=== PATIENT | female | born 1955 | race Caucasian/White ===

== ENCOUNTER 2019-02-19 15:14 | Emergency (ER) | payer BC, MEDICARE ==
[2019-02-19 15:59] VITALS: BP 136/87
--- NOTE | 2019-02-19 16:19 | UC ---
Abdominal Pain Female HPI - HPI Summary HPI Summary: C/O diarrhea since yesterday. Some nausea but no vomiting. No blood or mucus in the diarrhea. C/O ear fullness. 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 Negative: Diaphoresis, Fever, Cough, Dizzy, Constipation, Blood in Stool Allergies/Adverse Reactions: Allergies Allergy/AdvReac Type Severity Reaction Status Date / Time lansoprazole Allergy Hives Verified 02/19/19 16:00 PMH/Surg Hx/FS Hx/Imm Hx Endocrine History: Hypothyroidism GI/ History: Gastroesophageal Reflux - Surgical History Surgical History: Yes Surgery Procedure, Year, and Place: d&c. T&A. partial thyroidectomy. tubal ligation. meniscus repair. right knee replacement 07/2018 - Family History Known Family History: Positive: Cardiac Disease, Hypertension - Social History Occupation: Retired Lives: With Family Alcohol Use: Occasionally Alcohol Amount: 1-2 Substance Use Type: None Smoking Status (MU): Never Smoked Tobacco Review of Systems All Other Systems Reviewed And Are Negative: Yes Constitutional: Positive: Fatigue Gastrointestinal: Positive: Diarrhea, Nausea Physical Exam Triage Information Reviewed: Yes Appearance: No Pain Distress, Ill-Appearing - mild, Obese Vital Signs: Initial Vital Signs Temp 99.2 F 02/19/19 15:55 Pulse 70 02/19/19 15:55 Resp 16 02/19/19 15:55 BP 136/87 02/19/19 15:55 Pulse Ox 97 02/19/19 15:55 Vital Signs Reviewed: Yes Eyes: Positive: Conjunctiva Clear ENT: Positive: Pharynx normal, Nasal congestion, TMs normal Neck exam: Normal Respiratory Exam: Normal Cardiovascular Exam: Normal Abdomen Description: Positive: Nontender, No Organomegaly Bowel Sounds: Positive: Hyperactive Musculoskeletal Exam: Normal Neurological Exam: Normal Psychological Exam: Normal Skin Exam: Normal Abd Pain Female Course/Dx - Differential Dx/Diagnosis Differential Diagnosis: Constipation, Gall Bladder Disease, Pancreatitis, Peptic Ulcer Disease Provider Diagnosis: Viral gastroenteritis, Allergic rhinitis Discharge ED - Sign-Out/Discharge Documenting (check all that apply): Patient Departure All imaging exams completed and their final reports reviewed: No Studies - Discharge Plan Condition: Stable Disposition: HOME Prescriptions: Ondansetron ODT TAB* [Zofran 4 MG Odt TAB*] 4 mg PO Q6H PRN #14 tab.odt PRN Reason: Nausea/Vomiting Patient Education Materials: Gastroenteritis (ED) Referrals: Salazar Enamorado NP [Primary Care Provider] - Additional Instructions: NASAL SPRAYS AND DROPS: Afrin in the PUMP/ MIST bottle (Get generic 12 hours nasal decongestant spray). Tilt your head down and look at the floor while doing the spray, "nose to toes". Decongestant nasal sprays and drops often give dramatic relief from congestion. They are often recommended for patients with sinus infection to assist with sinus drainage. Persons with high blood pressure should consult the doctor before using these nasal sprays. Afrin and Jose-Synephrine are common qdsv-nmi-byifbpx preparations. They should not be used for more than five days, as "rebound" congestion can occur - - the congestion flares as the drug wears off. A way of dealing with this rebound congestion problem is to medicate only one nostril each time, allowing the other nostril to recover from the medicine' s effects. When you no longer need the drug during the day, spray only one nostril each night. This helps you sleep well without severe rebound congestion. Call the doctor if you develop severe headache, palpitations, or chest pain. Use the afrin before using the flonase. You may want to use it before flying to help being able to "pop" your ears. - Billing Disposition and Condition Condition: STABLE Disposition: Home
== END 2019-02-19 16:43 | disposition home or self-care (01) ==
LOC: UCCORT 15:14
DX: A08.4 Viral intestinal infection, unspecified (principal); J30.9 Allergic rhinitis, unspecified; R53.83 Other fatigue; Z88.8 Allergy status to other drugs, medicaments and biological substances
CPT/HCPCS: 99212; G0463

== ENCOUNTER 2019-07-27 16:34 | Emergency (ER) | payer MEDICARE ==
--- OUTSIDE RECORDS SUMMARY | 2019-07-27 16:47 | XMS REPORT | Continuity of Care Document ---
:1955 External Reference #:[id number] Author Name Salazar Enamorado NP (transmitted by agent of provider Selena Pascual) Address [address], [place] [address] Care Team Providers Name Role Phone Mita Lopez MD - Internal Care Team Information Blending Line Attendant [phone] Medicine Problems Active Problems Provider Date Hypothyroidism Salazar Enamorado NP Onset: 04/08/2018 Essential hypertension Salazar Enamorado NP Onset: 04/08/2018 Hyperlipidemia Salazar Enamorado NP Onset: 04/08/2018 Social History Type Date Description Comments Sex Unknown Tobacco Use Start: Unknown End: Former Cigarette Smoker 1978 Unknown Smoking Status Reviewed: 07/14/19 Former Cigarette Smoker 1978 ETOH Use Currently consumes 1-3 glasses of wine alcohol daily Tobacco Use Start: Unknown End: Patient is a former 1-1 1/2ppd from Unknown smoker 16-26 Recreational Drug Use Denies Drug Use Exercise Type/Frequency Exercises rarely Allergies, Adverse Reactions, Alerts Description No Known Drug Allergies Medications Active Medications SIG Qnty Indications Ordering Date Provider Irbesartan 1 by mouth 90tabs Salazar Enamorado NP 06/24/2019 300mg Tablets every day Gabapentin take 1-3 60caps G47.00 Salazar Enamorado NP 06/07/2019 100mg Capsules capsules by mouth at night Lotrimin AF For Her use as directed 24gm B35.4 Sailaja Byers, 10/28/2018 1% Cream to groin SENIOR CASE MANAGER-Cde Dilt-XR take 1 capsule 90caps I10 Vilma Taylor, 06/20/2018 180mg Caps ER 24HR by mouth every MD day Omeprazole take 1 capsule 90caps Salazar Enamorado NP 05/04/[address] by mouth every day Labetalol HCL take 1 tablet 180tabs Salazar Enamorado NP 04/08/2018 200mg Tablets by mouth twice a day Citalopram Hydrobromide take 1 tablet 90tabs Salazar Enamorado NP 04/08/2018 20mg by mouth every Tablets day Pravastatin Sodium take 1 tablet 90tabs Salazar Enamorado NP 04/08/2018 80mg Tablets by mouth every day Hydrochlorothiazide take 1 tablet 90tabs Salazar Enamorado NP 04/08/2018 25mg Tablets by mouth every day Levothyroxine Sodium take 1 tablet 90tabs E03.9 Vilma Davilaaz, 04/08/2018 50mcg by mouth every MD Tablets day Multi Adult Gummies 2 by mouth Unknown Chewtabs every day Fluticasone Propionate 2 sprays each Unknown 50mcg/Act nostril qd. Suspension Immunizations CPT Code Status Date Vaccine Lot # [id number] Given 12/17/2018 Influenza Virus Vaccine, Quadrivalent, Split, Preservative Free Vital Signs Date Vital Result Comment 07/14/2019 1:12pm Height 66 inches 5'6" Weight 224.12 lb Heart Rate 71 /min BP Systolic 154 mmHg BP Diastolic 91 mmHg BP Systolic Sitting 147 mmHg BP Diastolic Sitting 89 mmHg BP Systolic Recheck 146 mmHg BP Diastolic Recheck 88 mmHg Body Temperature 97.6 F O2 % BldC Oximetry 97 % BMI (Body Mass Index) 36.2 kg/m2 06/07/2019 10:35am Height 66 inches 5'6" Weight 218.12 lb Heart Rate 66 /min BP Systolic 114 mmHg BP Diastolic 79 mmHg Body Temperature 97.2 F O2 % BldC Oximetry 98 % BMI (Body Mass Index) 35.2 kg/m2 Results Test Acquired Date Facility Test Result H/L Range Note CBC Auto 07/14/2019 [facility] White Blood 5.8 10^3/uL Normal 3.5-10.[address] [place] [address] [phone] Red Blood Count 4.10 10^6/uL Normal 3.70-4.87 Hemoglobin 13.1 g/dL Normal 12.0-16.0 Hematocrit 39 % Normal 35-47 Mean Corpuscular Volume 94 fL Normal 80-97 Mean Corpuscular Hemoglobin 32 pg High 27-31 Mean Corpuscular HGB Conc 34 g/dL Normal 31-36 Red Cell Distribution Width 14 % Normal 10-15 Platelet Count 192 10^3/uL Normal 150-450 Mean Platelet Volume 8.9 fL Normal 7.4-10.4 Abs Neutrophils 4.0 10^3/uL Normal 1.5-7.7 Abs Lymphocytes 1.2 10^3/uL Normal 1.0-4.8 Abs Monocytes 0.4 10^3/uL Normal 0-0.8 Abs Eosinophils 0.1 10^3/uL Normal 0-0.6 Abs Basophils 0.0 10^3/uL Normal 0-0.2 Abs Nucleated RBC 0.0 10^3/uL Granulocyte % 69.8 % Lymphocyte % 20.4 % Monocyte % 7.6 % Eosinophil % 1.7 % Basophil % 0.5 % Nucleated Red Blood Cells % 0.0 Basic Metabolic 07/14/2019 [facility] Sodium 140 mmol/L Normal 135-[address] [place] [address] [phone] Potassium 3.9 mmol/L Normal 3.5-5.0 Chloride 104 mmol/L Normal 101-111 Co2 Carbon Dioxide 28 mmol/L Normal 22-32 Anion Gap 8 mmol/L Normal 2-11 Glucose 98 mg/dL Normal 70-100 Blood Urea Nitrogen 13 mg/dL Normal 6-24 Creatinine 0.68 mg/dL Normal 0.51-0.95 BUN/Creatinine Ratio 19.1 Normal 8-20 Calcium 9.1 mg/dL Normal 8.6-10.3 Egfr Non- 86.8 >60 Egfr 105.1 >60 1 Order 07/14/2019 [facility] In-House EKG <pending> Surgical 06/14/2019 [facility] Surgical SEE RESULT BELOW 2 , [address] [place] [address] [phone] PDFReport SEE IMAGE Laboratory test 06/14/2019 [facility] Clotest SEE RESULT 4 , [address] [place] [address] [phone] Lipid Profile 06/07/2019 [facility] Triglycerides 183 mg/dL 6 (Trig/Chol/HDL) [address] [place] [address] [phone] Cholesterol 165 mg/dL 7 HDL Cholesterol 40.6 mg/dL 8 LDL Cholesterol 88 mg/dL 9 Comp Metabolic 06/07/2019 [facility] Sodium 141 mmol/L Normal 135-[address] [place] [address] [phone] Potassium 3.8 mmol/L Normal 3.5-5.0 Chloride 104 mmol/L Normal 101-111 Co2 Carbon Dioxide 28 mmol/L Normal 22-32 Anion Gap 9 mmol/L Normal 2-11 Glucose 102 mg/dL High 70-100 Blood Urea Nitrogen 10 mg/dL Normal 6-24 Creatinine 0.70 mg/dL Normal 0.51-0.95 BUN/Creatinine Ratio 14.3 Normal 8-20 Calcium 9.7 mg/dL Normal 8.6-10.3 Total Protein 6.6 g/dL Normal 6.4-8.9 Albumin 4.4 g/dL Normal 3.2-5.2 Globulin 2.2 g/dL Normal 2-4 Albumin/Globulin Ratio 2.0 Normal 1-3 Total Bilirubin 0.60 mg/dL Normal 0.2-1.0 Alkaline Phosphatase 72 U/L Normal 34-104 Alt 17 U/L Normal 7-52 Ast 16 U/L Normal 13-39 Egfr Non- 84.0 >60 Egfr 101.6 >60 10 Laboratory 06/07/2019 [facility] TSH (Thyroid 4.40 Normal 0.34 -5.60 11 test finding [address] Stim Horm) mcIU/[place] [address] [phone] 1 Because ethnic data is not always readily available, this report includes an eGFR for both -Americans and non- Americans. The National Kidney Disease Education Program (NKDEP) does not endorse the use of the MDRD equation for patients that are not between the ages of 18 and 70, are , have extremes of body size, muscle mass, or nutritional status, or are non- or non-. According to the National Kidney Foundation, irrespective of diagnosis, the stage of the disease is based on the level of kidney function: Stage Description GFR(mL/min/1.73 m(2)) 1 Kidney damage with normal or decreased GFR 90 2 Kidney damage with mild decrease in GFR 60-89 3 Moderate decrease in GFR 30-59 4 Severe decrease in GFR 15-29 5 Kidney failure <15 (or dialysis) 2 [id number] 3 SEE RESULT BELOW Name: MICHELLE VAZQUEZ : [address]: Harvey Colunga MD Acct: [id number] Unit: [id number] AGE: 63 Location: [facility] Re06/14/19 SEX: F Status: DEP REF SPEC: [id number] KRISTAN: 06/14/19- SUBM DR: Harvey Colunga MD REQ: [id number] RECD: 06/14/19-1245 STATUS: PORFIRIO UREÑA DR: Garry Davies MD _ ORDERED: LEVEL 4/2 COMMENTS: [id number] FINAL DIAGNOSIS 1. Gastroesophageal junction, biopsy: -- Benign squamous and columnar-type mucosa with chronic inflammation and intestinal metaplasia. -- Dysplasia is absent. 2. Esophagus, random, biopsy: -- Benign squamous mucosa with mild erosive changes. -- No columnar component present for evaluation. -- No evidence of eosinophilic esophagitis. 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 Director [facility] # [id number] GROSS DESCRIPTION 1. The specimen is received in formalin labeled, GE Junction Biopsy, and consists of a 0.4 x 0.2 x 0.2 cm grant-pink irregular soft tissue fragment which is submitted entirely in one cassette. 2. The specimen is received in formalin labeled, Random Esophagus Biopsy, and consists of a 0.6 x 0.6 x 0.1 cm aggregate of translucent grant-white irregular soft tissue fragments which is submitted entirely in one cassette. Signed by and Reported on: aPlma Sampson MD 06/15/19 1051 END OF REPORT DEPARTMENT OF PATHOLOGY, [address] [place] [address] Bacilio Caballero M.D. Director [facility] # [id number] 4 [id number] 5 SEE RESULT BELOW Name: MICHELLE VAZQUEZ : [address]: Harvey Colunga MD Acct: [id number] Unit: [id number] AGE: 63 Location: [facility] Re06/14/19 SEX: F Status: DEP REF SPEC: [id number] KRISTAN: 06/14/19-[address] [facility] DR: Harvey Colunga MD REQ: [id number] RECD: 06/14/19-131 STATUS: RAMO SARMIENTO DR: Salazar Enamorado CNC LATHE PROGRAMMER _ [facility] ORDERED: Clotest COMMENTS: [id number] Procedure Result Reported Site Clotest Final 06/15/19- 801 ML Clotest Negative * ML - Main Lab . END OF REPORT DEPARTMENT OF PATHOLOGY, [address] [place] [address] Bacilio Caballero M.D. Director [facility] # [id number] 6 Desirable: <150 Borderline High: 150-199 High: 200-499 Very High: >500 7 Desirable: <200 Borderline High: 200-239 High: >239 8 Low: <40 Desirable: 40-60 High: >60 9 Desirable: <100 Near Optimal: 100-129 Borderline High: 130-159 High: 160-189 Very High: >189 10 Because ethnic data is not always readily available, this report includes an eGFR for both -Americans and non- Americans. The National Kidney Disease Education Program (NKDEP) does not endorse the use of the MDRD equation for patients that are not between the ages of 18 and 70, are , have extremes of body size, muscle mass, or nutritional status, or are non- or non-. According to the National Kidney Foundation, irrespective of diagnosis, the stage of the disease is based on the level of kidney function: Stage Description GFR(mL/min/1.73 m(2)) 1 Kidney damage with normal or decreased GFR 90 2 Kidney damage with mild decrease in GFR 60-89 3 Moderate decrease in GFR 30-59 4 Severe decrease in GFR 15-29 5 Kidney failure <15 (or dialysis) 11 FASTING 10 HOUR Procedures Date Code Description Status 07/14/2019 21094 EKG Tracing & Interpretation Completed 11/15/2018 [id number] Mammogram Completed 05/20/2017 [id number] Mammogram Completed Medical Devices Description No Information Available Encounters Type Date Location Provider Dx Diagnosis Office Visit 07/14/2019 [facility] Internal Salazar Fei, CNC LATHE PROGRAMMER Z01.818 Encounter for other 1:00p Medicine - Ccmob preprocedural examination M43.16 Spondylolisthesis, lumbar region I10 Essential (primary) hypertension E03.9 Hypothyroidism, unspecified E78.5 Hyperlipidemia, unspecified Office Visit 06/07/2019 10:40a [facility] Internal Salazar Fei, E03.9 Hypothyroidism, Medicine - CNC LATHE PROGRAMMER unspecified Ccmob I10 Essential (primary) hypertension E78.5 Hyperlipidemia, unspecified G47.00 Insomnia, unspecified Assessments Date Code Description Provider 07/14/2019 I10 Essential (primary) hypertension Mita Lopez M.D. 07/14/2019 Z01.818 Encounter for other preprocedural Salazar Fei, CNC LATHE PROGRAMMER examination 07/14/2019 M43.16 Spondylolisthesis, lumbar region Salazar Fei, CNC LATHE PROGRAMMER 07/14/2019 I10 Essential (primary) hypertension Salazar Fei, CNC LATHE PROGRAMMER 07/14/2019 E03.9 Hypothyroidism, unspecified Salazar Fei, CNC LATHE PROGRAMMER 07/14/2019 E78.5 Hyperlipidemia, unspecified Salazar Fei, CNC LATHE PROGRAMMER 06/07/2019 E03.9 Hypothyroidism, unspecified Salazar Fei, CNC LATHE PROGRAMMER 06/07/2019 I10 Essential (primary) hypertension Salazar Fei, CNC LATHE PROGRAMMER 06/07/2019 E78.5 Hyperlipidemia, unspecified Salazar Enamorado NP 06/07/2019 G47.00 Insomnia, unspecified Salazar Enamorado NP Plan of Treatment Future Appointment(s):12/08/2019 9:40 am - Salazar Enamorado NP at [facility] Internal Medicine - [facility]04/12/2019 - Salazar Enamorado NPZ01.818 Encounter for other preprocedural svichvyobmbB07.16 Spondylolisthesis, lumbar afzarzB17 Essential ( primary) hypertensionComments:Your blood pressure is slightly elevated today. Start checking your blood pressure again and report readings that are persistently higher than 140/90.E03.9 Hypothyroidism, pulxbtefxbeI67.5 Hyperlipidemia, unspecified Functional Status Description No Information Available Mental Status Description No Information Available Referrals Description No Information Available
--- OUTSIDE RECORDS SUMMARY | 2019-07-27 16:48 | XMS REPORT | Continuity of Care Document ---
:1955 External Reference #:[id number] Author Name Harvey Colunga MD Address [address] [place] [id number] Care Team Providers Name Role Phone Garry Davies MD Care Team Information Manufacturing Specialist [phone] Salazar Enamorado FNP Care Team Information Manufacturing Specialist [phone] Problems Active Problems Provider Date Esophageal dysphagia Harvey Colunga MD Onset: 05/11/2019 Gastroesophageal reflux disease Harvey Colunga MD Onset: 05/11/2019 Social History Type Date Description Comments Sex Unknown Tobacco Use Start: Unknown End: Unknown Patient is a former smoker Smoking Status Reviewed: 05/11/19 Patient is a former smoker Allergies, Adverse Reactions, Alerts Active Allergies Reaction Severity Comments Date Lansoprazole rash 04/27/2019 Medications Active Medications SIG Qnty Indications Ordering Date Provider Losartan Potassium Take 1 Tablet Unknown 100mg Tablets By Mouth Every Day Levothyroxine Sodium Take 1 Tablet Unknown 50mcg Tablets By Mouth Every Day Labetalol HCL Take 1 Tablet Unknown 200mg Tablets By Mouth Twice A Day Pravastatin Sodium Take 1 Tablet Unknown 80mg Tablets By Mouth Every Day Dilt-XR Take 1 Capsule Unknown 180mg Caps ER 24HR By Mouth Every Day Hydrochlorothiazide Take 1 Tablet Unknown 25mg Tablets By Mouth Every Day Omeprazole Take 1 Capsule Unknown 20mg Capsules DR By Mouth Every Day Citalopram Hydrobromide Take 1 Tablet Unknown 20mg By Mouth Every Tablets Day History Medications Doxycycline Hyclate take 1 tablet by Garry Monahan MD 2019 - mouth twice a 05/11/2019 100mg Capsules day Immunizations Description No Information Available Vital Signs Date Vital Result Comment 05/11/2019 9:24am Height 65 inches 5'5" Weight 224.00 lb BP Systolic 150 mmHg BP Diastolic 90 mmHg Heart Rate 68 /min BMI (Body Mass Index) 37.3 kg/m2 Results Test Acquired Date Facility Test Result H/L Range Note Surgical 06/14/[address] [facility] Surgical SEE RESULT 1, 2 Pathology Order Pathology BELOW PDFReport SEE IMAGE Laboratory test finding 06/14/[address] [facility] Clotest SEE RESULT BELOW 3, 4 1 [id number] SEE RESULT BELOW Name: MICHELLE VAZQUEZ : [address]: Harvey Colunga MD Acct: [id number] Unit: [id number] AGE: 63 Location: [facility] Re06/14/19 SEX: F Status: DEP REF SPEC: [id number] KRISTAN: 06/14/19- SUBM DR: Harvey Colunga MD REQ: [id number] RECD: 06/14/191245 STATUS: PORFIRIO UREÑA DR: Garry Davies MD _ ORDERED: LEVEL 4/2 COMMENTS: [id number] FINAL DIAGNOSIS 1. Gastroesophageal junction, biopsy: -- [...] CONTINUED ON NEXT PAGE DEPARTMENT OF PATHOLOGY, [address] [place] [address] Bacilio Caballero M.D. Director [facility] # [id number] GROSS DESCRIPTION 1. The specimen is received [...] one cassette. Signed by and Reported on: Palma Sampson MD 06/15/19 1051 END OF REPORT DEPARTMENT OF PATHOLOGY, [address] [place] [address] Bacilio Caballero M.D. Director [facility] # [id number] 3 [id number] 4 SEE RESULT BELOW Name: MICHELLE VAZQUEZ : [address]: Harvey Colunga MD Acct: [id number] Unit: [id number] AGE: 63 Location: [facility] Re06/14/19 SEX: F Status: DEP REF SPEC: [id number] KRISTAN: 06/14/19-1156 [facility] DR: Harvey Colunga MD REQ: [id number] RECD: 06/14/19 STATUS: RAMO UREÑA DR: Salazar Enamorado VEGETABLE VENDOR _ SOURCE: GAS ANTRUM SPDESC: ORDERED: Clotest COMMENTS: [id number] Procedure Result Reported Site Clotest Final 06/15/19- 801 ML Clotest Negative * ML - Main Lab . END OF REPORT DEPARTMENT OF PATHOLOGY, [address] [place] [address] Bacilio Caballero M.D. Director [facility] # [id number] SEE RESULT BELOW Name: MICHELLE VAZQUEZ : [address]: Harvey Colunga MD Acct: [id number] Unit: [id number] AGE: 63 Location: [facility] Re06/14/19 SEX: F Status: DEP REF SPEC: [id number] KRISTAN: 06/14/19-[address]: Harvey Colunga MD REQ: [id number] RECD: 06/14/19-1310 STATUS: COMP OTHR DR: Salazar Enamorado VEGETABLE VENDOR _ SOURCE: GAS ANTRUM SPDESC: ORDERED: Clotest COMMENTS: [id number] Procedure Result Reported Site Clotest Final 06/15/19- 801 ML Clotest Negative * ML - Main Lab . END OF REPORT DEPARTMENT OF PATHOLOGY, [address] [place] [address] Bacilio Caballero M.D. Director [facility] # [id number] Procedures Description No Information Available Medical Devices Description No Information Available Encounters Type Date Location Provider Dx Diagnosis Office Visit 05/11/2019 Gastroenterology Harvey Patel K21.9 Gastro-esophageal 9:30a [facility] MD Keanu reflux disease without esophagitis R13.14 Dysphagia, pharyngoesophageal phase Assessments Date Code Description Provider 05/11/2019 K21.9 Gastro-esophageal reflux disease without Harvey Colunga MD esophagitis 05/11/2019 R13.14 Dysphagia, pharyngoesophageal phase Harvey Colunga MD Plan of Treatment 05/11/2019 - Harvey Colunga MDK21.9 Gastro-esophageal reflux disease without esophagitisComments:RISKS AND BENEFITS OF THE PROCEDURE WERE DISCUSSED WITH PATIENT. Long d/w pt re: causes of dysphagia; ring, stricture, EoE, motility, Ca......pt needs EGD to evalR13.14 Dysphagia, pharyngoesophageal phase Functional Status Description No Information Available Mental Status Description No Information Available Referrals Description No Information Available
--- OUTSIDE RECORDS SUMMARY | 2019-07-27 16:48 | XMS REPORT | Continuity of Care Document ---
:1955 External Reference #:[id number] Author Name Harvey Colunga MD (transmitted by agent of provider Karen Cotto) Address [address] [place] [address] Care Team Providers Name Role Phone Garry Davies MD Care Team Information Tobacco Checkout Clerk [phone] Salazar Enamorado FNP Care Team Information Tobacco Checkout Clerk [phone] Problems Active Problems Provider Date Esophageal dysphagia [...] Test Result H/L Range Note Surgical 06/14/2019 [facility] Surgical SEE RESULT 1, 2 Pathology Order Pathology BELOW PDFReport SEE IMAGE Laboratory test finding 06/14/2019 [facility] Clotest SEE RESULT BELOW 3, 4 1 [id number] 2 SEE RESULT BELOW Name: MICHELLE VAZQUEZ : [address]: Harvey Colunga MD Acct: [id number] Unit: [id number] AGE: 63 Location: [facility] Re06/14/19 SEX: F Status: DEP REF SPEC: [id number] KRISTAN: 06/14/19- SUBM DR: Harvey Colunag MD REQ: [id number] RECD: 06/14/19-1245 STATUS: PORFIRIO UREÑA DR: Garry Davies MD _ ORDERED: LEVEL 4/2 COMMENTS: [id number] FINAL DIAGNOSIS 1. Gastroesophageal junction, biopsy: -- [...] CONTINUED ON NEXT PAGE DEPARTMENT OF PATHOLOGY, [address] [place] [address] Bacilio Caballero M.D. Director [facility] # [id number] GROSS DESCRIPTION 1. The specimen is received [...] 1051 END OF REPORT DEPARTMENT OF PATHOLOGY, [address] [place] [address] Bacilio Caballero M.D. Director [facility] # [id number] 3 [id number] 4 SEE RESULT BELOW Name: MICHELLE VAZQUEZ : [address]: Harvey Colunga MD Acct: [id number] Unit: [id number] AGE: 63 Location: [facility] Re06/14/19 SEX: F Status: DEP REF SPEC: [id number] RK[place]: 06/14/19-[address] [facility] [address]: Harvey Colunga MD REQ: [id number] RECD: 06/14/19-0 STATUS: RAMO UREÑA DR: Salazar Enamorado BRAZE OPERATOR _ SOURCE: GAS ANTRUM SPDESC: ORDERED: Clotest COMMENTS: [id number] Procedure Result Reported Site Clotest Final 06/15/19- 801 ML Clotest Negative * ML - Main Lab . END OF REPORT DEPARTMENT OF PATHOLOGY, [address] [place] [address] Bacilio Caballero M.D. Director [facility] # [id number] SEE RESULT BELOW Name: MICHELLE VAZQUEZ : [address]: Harvey Colunga MD Acct: [id number] Unit: [id number] AGE: 63 Location: [facility] Re06/14/19 SEX: F Status: DEP REF SPEC: [id number] KRISTAN: 06/14/19-[address] [facility] [address]: Harvey Clounga MD REQ: [id number] RECD: 06/14/19-1309 STATUS: RAMO UREÑA DR: Salazar Enamorado BRAZE OPERATOR _ SOURCE: GAS ANTRUM SPDESC: ORDERED: Clotest COMMENTS: [id number] Procedure Result Reported Site Clotest Final 06/15/19- 801 ML Clotest Negative * - Main Lab . END OF REPORT DEPARTMENT OF PATHOLOGY, [address] [place] [address] Bacilio Caballero M.D. Director [facility] # [id number] Procedures Date Code Description Status 06/14/2019 47862 EGD+Biopsy Single Or Multiple Completed Medical Devices Description No Information Available Encounters Type Date Location Provider Dx Diagnosis Office Visit 05/11/2019 Gastroenterology Harvey Patel K21.9 Gastro-esophageal 9:30a [facility] MD Keanu reflux disease without esophagitis R13.14 Dysphagia, pharyngoesophageal phase Assessments Date Code Description Provider 06/14/2019 R13.10 Dysphagia, unspecified Harvey Colunga MD 05/11/2019 K21.9 Gastro-esophageal reflux disease without Harvey [...]
--- OUTSIDE RECORDS SUMMARY | 2019-07-27 16:48 | XMS REPORT | Continuity of Care Document ---
:1955 External Reference #:[id number] Author Name Harvey Colunga MD Address [address] [place] [phone] Care Team Providers Name Role Phone Garry Davies MD Care Team Information Executor Of Estate [phone] Salazar Enamorado FNP Care Team Information Executor Of Estate [phone] Problems Active Problems Provider Date Esophageal dysphagia [...] Test Result H/L Range Note Surgical 06/14/2019 [facility] Surgical SEE RESULT 1, 2 Pathology Order Pathology BELOW PDFReport SEE IMAGE Laboratory test finding 06/14/2019 [facility] Clotest SEE RESULT BELOW 3, 4 1 [id number] 2 SEE RESULT BELOW Name: MICHELLE VAZQUEZ : [address]: Harvey Colunga MD Acct: [id number] Unit: [id number] AGE: 63 Location: [facility] Re06/14/19 SEX: F Status: DEP REF SPEC: [id number] KRISTAN: 06/14/19- SUBM DR: Harvey Colunga MD REQ: [id number] RECD: 06/14/191245 STATUS: PORFIRIO UREÑA DR: Garry Davies MD _ ORDERED: LEVEL 4/2 COMMENTS: [id number] FINAL DIAGNOSIS 1. Gastroesophageal junction, biopsy: -- [...] CONTINUED ON NEXT PAGE DEPARTMENT OF PATHOLOGY, [address] [place] [address] Bacilio Caballero M.D. Director [facility] # [id number] GROSS DESCRIPTION 1. The specimen is received [...] 1051 END OF REPORT DEPARTMENT OF PATHOLOGY, [address] [place] [address] Bacilio Caballero M.D. Director [facility] # [id number] 3 [id number] 4 SEE RESULT BELOW Name: MICHELLE VAZQUEZ : [address]: Harvey Colunga MD Acct: [id number] Unit: [id number] AGE: 63 Location: [facility] Re06/14/19 SEX: F Status: DEP REF SPEC: [id number] KRISTAN: 06/14/19-11[address] [facility] DR: Harvey Colunga MD REQ: [id number] RECD: 06/14/19 STATUS: RAMO UREÑA DR: Salazar Enamorado PRACTICING UROLOGIST _ SOURCE: GAS ANTRUM SPDESC: ORDERED: Clotest COMMENTS: [id number] Procedure Result Reported Site Clotest Final 06/15/19- 801 ML Clotest Negative * ML - Main Lab . END OF REPORT DEPARTMENT OF PATHOLOGY, [address] [place] [address] Bacilio Caballero M.D. Director [facility] # [id number] SEE RESULT BELOW Name: MICHELLE VAZQUEZ : [address]: Harvey Colunga MD Acct: [id number] Unit: [id number] AGE: 63 Location: [facility] Re06/14/19 SEX: F Status: DEP REF SPEC: [id number] KRISTAN: 06/14/19-[address]: Harvey Colunga MD REQ: [id number] RECD: 06/14/19-1310 STATUS: COMP OTHR DR: Salazar Enamorado PRACTICING UROLOGIST _ SOURCE: GAS ANTRUM SPDESC: ORDERED: Clotest COMMENTS: [id number] Procedure Result Reported Site Clotest Final 06/15/19- 801 ML Clotest Negative * ML - Main Lab . END OF REPORT DEPARTMENT OF PATHOLOGY, [address] [place] [address] Bacilio Caballero M.D. Director [facility] # [id number] Procedures Description No Information Available Medical Devices Description No Information Available Encounters Type Date Location Provider Dx Diagnosis Office Visit 05/11/2019 Gastroenterology Harvey Patel K21.9 Gastro-esophageal 9:30a [facility] MD Keanu reflux disease without esophagitis [...]
--- OUTSIDE RECORDS SUMMARY | 2019-07-27 16:48 | XMS REPORT | Continuity of Care Document ---
:1955 External Reference #:[id number] Author Name Salazar Enamorado NP (transmitted by agent of provider Freya Diaz) Address [address] [facility], [place] [address] Care Team Providers Name Role Phone Mita Lopez MD - Internal Care Team Information Fabrication Lead [phone] Medicine Problems Active Problems Provider Date Hypothyroidism Salazar Enamorado NP Onset: 04/08/2018 Essential hypertension Salazar Enamorado NP Onset: 04/08/2018 Hyperlipidemia Salazar Enamorado NP Onset: 04/08/2018 Social History Type Date Description Comments Sex Unknown Tobacco Use Start: Unknown End: Former Cigarette Smoker 1978 Unknown Smoking Status Reviewed: 06/07/19 Former Cigarette Smoker 1978 ETOH Use Currently consumes 1-3 glasses of wine alcohol daily Tobacco Use Start: Unknown End: Patient is a former 1-1 1/2ppd from Unknown smoker 16-26 Recreational Drug Use Denies Drug Use Exercise Type/Frequency Exercises rarely Allergies, Adverse Reactions, Alerts Description No Known Drug Allergies Medications Active Medications SIG Qnty Indications Ordering Date Provider Gabapentin take 1-3 60caps G47.00 Salazar Enamorado NP 06/07/2019 100mg Capsules capsules by mouth at night Lotrimin AF For Her use as directed 24gm B35.4 Sailaja Byers, 10/28/2018 1% 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 Suspension Immunizations CPT Code Status Date Vaccine Lot # [id number] Given 12/17/2018 Influenza Virus Vaccine, Quadrivalent, Split, Preservative Free Vital Signs Date Vital Result Comment 06/07/2019 10:35am Height 66 inches 5'6" Weight 218.12 lb Heart Rate 66 /min BP Systolic 114 mmHg BP Diastolic 79 mmHg Body Temperature 97.2 F O2 % BldC Oximetry 98 % BMI (Body Mass Index) 35.2 kg/m2 10/28/2018 10:13am Height 66 inches 5'6" Weight 218.00 lb Heart Rate 74 /min BP Systolic Sitting 145 mmHg Lue BP Diastolic Sitting 99 mmHg Lue Respiratory Rate 18 /min O2 % BldC Oximetry 98 % room air BMI (Body Mass Index) 35.2 kg/m2 Results Description No Information Available Procedures Date Code Description Status 11/15/2018 11895879 Mammogram Completed 05/20/2017 83493278 Mammogram Completed Medical Devices Description No Information Available Encounters Description No Information Available Assessments Date Code Description Provider 06/07/2019 E03.9 Hypothyroidism, unspecified Salazarxiang Enamorado NP 06/07/2019 I10 Essential (primary) hypertension Salazar Enamorado NP 06/07/2019 E78.5 Hyperlipidemia, unspecified Salazarxiang Enamorado NP 06/07/2019 G47.00 Insomnia, unspecified Salazar HOMER Enamorado Plan of Treatment Future Appointment(s):12/08/2019 9:40 am - Salazar Enamorado NP at [facility] Internal Medicine - [facility]06/07/2019 - Salazar Enamorado NPE03.9 Hypothyroidism, unspecifiedComments:I will notify of your lab [id number] Essential (primary) hypertensionComments:HYPERTENSION:Well controlled on current regimen. Continue present management.Follow up:6 month medicare AWVE78.5 Hyperlipidemia, bbybwcpbzfcO67.00 Insomnia, unspecifiedNew Medication:Gabapentin 100 mg - take 1 -3 capsules by mouth at nightComments:It is important to try to adhere to proper sleep hygiene techniques:Sleep only as much as you need to feel rested and then get out of bedKeep a regular sleep scheduleDo not try to sleep unless you feelsleepyExercise regularly, preferably at least 4 to 5 hours before bedtimeAvoid caffeinated beveragesafter lunchAvoid alcohol near bedtime: no "night cap"Avoid smoking, especially in the eveningDo not go to bed hungryMake the bedroom environment conducive to sleepAvoid prolonged use of light-emitting screens before bedtime Deal with your worries before bedtimeTry the medication when you are unable tosleep. Functional Status Description No Information Available Mental Status Description No Information Available Referrals Description No Information Available
--- OUTSIDE RECORDS SUMMARY | 2019-07-27 16:48 | XMS REPORT | Continuity of Care Document ---
:1955 External Reference #:[id number] Author Name Salazar Enamorado NP (transmitted by agent of provider Selena Pascual) Address [address] [facility], [place] [address] Care Team Providers Name Role Phone Mita Lopez MD - Internal Care Team Information Wax Pumper [phone] Medicine Problems Active Problems Provider Date Hypothyroidism [...] Sailaja Byers, 10/28/2018 1% Cream to groin PAID INTERNSHIP-Cde Dilt-XR take 1 capsule 90caps I10 Vilma [...] CPT Code Status Date Vaccine Lot # [id number] Given 12/17/2018 Influenza Virus Vaccine, Quadrivalent, Split, [...] Date Facility Test Result H/L Range Note Lipid Profile 06/07/2019 [facility] Triglycerides 183 mg/dL 1 (Trig/Chol/HDL) [address] [place] [address] [phone] Cholesterol 165 mg/dL 2 HDL Cholesterol 40.6 mg/dL 3 LDL Cholesterol 88 mg/dL 4 Comp Metabolic 06/07/2019 [facility] Sodium 141 mmol/L Normal 135-145 Panel [address] [place] [address] [phone] Potassium 3.8 mmol/L Normal 3.5-5.0 Chloride 104 [...] Egfr Non- 84.0 >60 Egfr 101.6 >60 5 Laboratory 06/07/2019 [facility] TSH (Thyroid 4.40 Normal 0.34 -5.60 6 test finding [address] Stim Horm) mcIU/[place] [address] [phone] 1 Desirable: <150 Borderline High: 150-199 High: 200-499 Very High: >500 2 Desirable: <200 Borderline High: 200-239 High: >239 3 Low: <40 Desirable: 40-60 High: >60 4 Desirable: <100 Near Optimal: 100-129 Borderline High: 130-159 High: 160-189 Very High: >189 5 Because ethnic data is not always readily [...] 15-29 5 Kidney failure <15 (or dialysis) 6 FASTING 10 HOUR Procedures Date Code Description Status 11/15/2018 [id number] Mammogram Completed 05/20/2017 91907603 Mammogram Completed Medical Devices Description No Information Available Encounters Type Date Location Provider Dx Diagnosis Office Visit 06/07/2019 [facility] Internal Salazar Enamorado NP E03.9 [facility] Essential (primary) hypertension E78.5 Hyperlipidemia, unspecified G47.00 Insomnia, unspecified Assessments Date Code Description Provider 06/07/2019 E03.9 Hypothyroidism, unspecified Salazarxiang Enamorado NP 06/07/2019 I10 Essential (primary) hypertension Salazar Enamorado NP 06/07/2019 E78.5 Hyperlipidemia, unspecified Salazar Enamorado NP 06/07/2019 G47.00 Insomnia, unspecified Salazar Enamorado NP Plan of Treatment Future Appointment(s):12/08/2019 9:40 am - Salazar Enamorado NP at [facility] Internal Medicine - [facility]06/07/2019 - Salazar Enamorado NPE03.9 Hypothyroidism, unspecifiedComments:I will notify of your lab [id number] Essential (primary) hypertensionComments:HYPERTENSION:Well controlled on current regimen. Continue present management.Follow up:6 month medicare AWVE78.5 Hyperlipidemia, sgrqpbjstlkP37.00 Insomnia, unspecifiedNew Medication:Gabapentin 100 mg - take [...]
--- OUTSIDE RECORDS SUMMARY | 2019-07-27 16:48 | XMS REPORT | Continuity of Care Document ---
:1955 External Reference #:[id number] Author Name Harvey Colunga MD Address [address] [place] [address] Care Team Providers Name Role Phone Garry Davies MD Care Team Information Hand Washer [phone] Salazar Enamorado FNP Care Team Information Hand Washer [phone] Problems Active Problems Provider Date Esophageal dysphagia [...] BMI (Body Mass Index) 37.3 kg/m2 Results Description No Information Available Procedures Description No Information Available Medical Devices Description No Information Available Encounters Description No Information Available Assessments Date Code Description Provider 05/11/2019 K21.9 [...]
--- OUTSIDE RECORDS SUMMARY | 2019-07-27 16:48 | XMS REPORT | Continuity of Care Document ---
:1955 External Reference #:[id number] Author Name Mita Lopez M.D. 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 [phone] Medicine Problems Active Problems Provider Date Hypothyroidism [...] Sailaja Byers, 10/28/2018 1% Cream to groin PHYSICIAN AIDE-Cde Dilt-XR take 1 capsule 90caps I10 Vilma [...] Pravastatin Sodium take 1 tablet 90tabs Salazar Enamorado, HOMER 04/08/2018 80mg Tablets by mouth every day [...] CPT Code Status Date Vaccine Lot # [id number] Given 12/17/2018 Influenza Virus Vaccine, Quadrivalent, Split, [...] Result H/L Range Note CBC Auto 07/14/2019 [facility] White Blood 5.8 10^3/uL Normal 3.5-10.[address] [place] [address] [phone] Red Blood Count 4.10 10^6/uL Normal 3.70-4.87 [...] Blood Cells % 0.0 Basic Metabolic 07/14/2019 [facility] Sodium 140 mmol/L Normal 135-[address] [place] [address] [phone] Potassium 3.9 mmol/L Normal 3.5-5.0 Chloride 104 mmol/L Normal 101-111 Co2 Carbon Dioxide 28 mmol/L Normal 22-32 Anion Gap 8 mmol/L Normal 2-11 Glucose 98 mg/dL Normal 70-100 Blood Urea Nitrogen 13 mg/dL Normal 6-24 Creatinine 0.68 mg/dL Normal 0.51-0.95 BUN/Creatinine Ratio 19.1 Normal 8-20 Calcium 9.1 mg/dL Normal 8.6-10.3 Egfr Non- 86.8 >60 Egfr 105.1 >60 1 Order 07/14/2019 [facility] In-House EKG <pending> Surgical 06/14/2019 [facility] Surgical SEE RESULT BELOW 2 , [address] [place] [address] [phone] PDFReport SEE IMAGE Laboratory test 06/14/2019 [facility] Clotest SEE RESULT 4 , [address] [place] [address] [phone] Lipid Profile 06/07/2019 [facility] Triglycerides 183 mg/dL 6 (Trig/Chol/HDL) [address] [place] [address] [phone] Cholesterol 165 mg/dL 7 HDL Cholesterol 40.6 mg/dL 8 LDL Cholesterol 88 mg/dL 9 Comp Metabolic 06/07/2019 [facility] Sodium 141 mmol/L Normal 135-[address] [place] [address] [phone] Potassium 3.8 mmol/L Normal 3.5-5.0 Chloride 104 [...] >60 Egfr 101.6 >60 10 Laboratory 06/07/2019 [facility] TSH (Thyroid 4.40 Normal 0.34 -5.60 11 test finding [address] Stim Horm) mcIU/[place] [address] [phone] 1 Because ethnic data is not always [...] 5 Kidney failure <15 (or dialysis) 2 [id number] 3 SEE RESULT BELOW Name: JUANITA VAZQUEZ : [address]: Harvey Colunga MD Acct: [id number] Unit: [id number] AGE: 63 Location: [facility] Re06/14/19 SEX: F Status: DEP REF SPEC: [id number] KRISTAN: 06/14/19- SUBM DR: Harvey Colunga MD REQ: [id number] RECD: 06/14/19-1245 STATUS: PORFIRIO UREÑA DR: Garry Davies MD _ ORDERED: LEVEL 4/2 COMMENTS: [id number] FINAL DIAGNOSIS 1. Gastroesophageal junction, biopsy: -- [...] CONTINUED ON NEXT PAGE DEPARTMENT OF PATHOLOGY, [address] [place] [address] Bacilio Caballero M.D. Director [facility] # [id number] GROSS DESCRIPTION 1. The specimen is received [...] 1051 END OF REPORT DEPARTMENT OF PATHOLOGY, [address] [place] [address] Bacilio Caballero M.D. Director [facility] # [id number] 4 [id number] 5 SEE RESULT BELOW Name: JUANITA VAZQUEZ : [address]: Harvey Colunga MD Acct: [id number] Unit: [id number] AGE: 63 Location: [facility] Re06/14/19 SEX: F Status: DEP REF SPEC: [id number] KRISTAN: 06/14/19-[address] [facility] [address]: Harvey Colunga MD REQ: [id number] RECD: 06/14/19-131 STATUS: RAMO UREÑA DR: Salazar Enamorado SCHEDULE HANGER _ SOURCE[facility]UM [facility]: ORDERED: Clotest COMMENTS: [id number] Procedure Result Reported Site Clotest Final 06/15/19- 801 ML Clotest Negative * ML - Main Lab . END OF REPORT DEPARTMENT OF PATHOLOGY, [address] [place] [address] Bacilio Caballero M.D. Director [facility] # [id number] 6 Desirable: <150 Borderline High: 150-199 High: [...] HOUR Procedures Date Code Description Status 07/14/2019 40911 EKG Tracing & Interpretation Completed 11/15/2018 [id number] Mammogram Completed 05/20/2017 94043392 Mammogram Completed Medical Devices Description No Information Available Encounters Type Date Location Provider Dx Diagnosis Office Visit 06/07/2019 [facility] Internal Salazar Enamorado NP E03.9 Hypothyroidism, 10:40a Medicine - [facility] unspecified I10 Essential (primary) hypertension E78.5 Hyperlipidemia, unspecified G47.00 Insomnia, unspecified Assessments Date Code Description Provider 07/14/2019 I10 Essential (primary) hypertension Mita Lopez M.D. 07/14/2019 Z01.818 Encounter for other preprocedural Salazarxiang Enamorado SCHEDULE HANGER examination 07/14/2019 M43.16 Spondylolisthesis, lumbar region Salazar Fei, SCHEDULE HANGER 07/14/2019 E03.9 Hypothyroidism, unspecified Salazar Fei, SCHEDULE HANGER 07/14/2019 I10 Essential (primary) hypertension Salazar Fei, SCHEDULE HANGER 07/14/2019 E78.5 Hyperlipidemia, unspecified Salazar Fei, SCHEDULE HANGER 06/07/2019 E03.9 Hypothyroidism, unspecified Salazar Fei, SCHEDULE HANGER 06/07/2019 I10 Essential (primary) hypertension Salazar Fei, SCHEDULE HANGER 06/07/2019 E78.5 Hyperlipidemia, unspecified Salazar Fei, SCHEDULE HANGER 06/07/2019 G47.00 Insomnia, unspecified Salazar Fei, SCHEDULE HANGER Plan of Treatment Future Appointment(s):12/08/2019 9:40 am - Salazar Enamorado NP [facility] Salazar Fei, NPZ01.818 Encounter for other preprocedural npdtohtyhalS14.16 Spondylolisthesis, lumbar lwuvxqR25.9 Hypothyroidism, ugdyctsacylE44 Essential (primary) hypertensionComments:Your blood pressure is slightly elevated today. Start checking your blood pressure again and report readings that are persistently higher than 140/90.E78.5 Hyperlipidemia, unspecified Functional Status Description No Information Available Mental Status Description No Information Available Referrals Description No Information Available
--- OUTSIDE RECORDS SUMMARY | 2019-07-27 16:48 | XMS REPORT | Continuity of Care Document ---
:1955 External Reference #:[id number] Author Name Salazar Enamorado NP Address [address], [place] [address] Care Team Providers Name Role Phone Mita Lopez MD - Internal Care Team Information Professor Of Biblical Studies [phone] Medicine Problems Active Problems Provider Date Hypothyroidism Salazar Enamorado NP Onset: 04/08/2018 Essential hypertension Salazar Enamorado NP Onset: 04/08/2018 Hyperlipidemia Salazar Enamorado NP Onset: 04/08/2018 Social History Type Date Description Comments Sex Unknown Tobacco Use Start: Unknown End: Former Cigarette Smoker 1978 Unknown Smoking Status Reviewed: 07/14/19 Former Cigarette Smoker 1979 ETOH Use Currently consumes 1-3 glasses of [...] Sailaja Byers, 10/28/2018 1% Cream to groin 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 Suspension Immunizations CPT Code Status Date Vaccine Lot # [id number] Given 12/17/2018 Influenza Virus Vaccine, Quadrivalent, Split, [...] Date Facility Test Result H/L Range Note Order 07/14/2019 [facility] In-House EKG <pending> Surgical 06/14/2019 [facility] Surgical SEE RESULT 1, [address] [place] [address] [phone] PDFReport SEE IMAGE Laboratory test 06/14/2019 [facility] Clotest SEE RESULT 3 , [address] [place] [address] [phone] Lipid Profile 06/07/2019 [facility] Triglycerides 183 mg/dL 5 (Trig/Chol/HDL) [address] [place] [address] [phone] Cholesterol 165 mg/dL 6 HDL Cholesterol 40.6 mg/dL 7 LDL Cholesterol 88 mg/dL 8 Comp Metabolic 06/07/2019 [facility] Sodium 141 mmol/L Normal 135-[address] [place] [address] [phone] Potassium 3.8 mmol/L Normal 3.5-5.0 Chloride 104 [...] Egfr Non- 84.0 >60 Egfr 101.6 >60 9 Laboratory 06/07/2019 [facility] TSH (Thyroid 4.40 Normal 0.34 -5.60 10 test finding [address] Stim Horm) mcIU/[place] [address] [phone] 1 [id number] 2 SEE RESULT BELOW Name: MICHELLE VAZQUEZ : [address]: Harvey Colunga MD Acct: [id number] Unit: [id number] AGE: 63 Location: [facility] Re06/14/19 SEX: F Status: DEP REF SPEC: [id number] KRISTAN: 06/14/19- SUBM DR: Harvey Colunga MD REQ: [id number] RECD: 06/14/19-1245 STATUS: PORFIRIO UREÑA DR: Garry Davies MD _ ORDERED: LEVEL 4/2 COMMENTS: [id number] FINAL DIAGNOSIS 1. Gastroesophageal junction, biopsy: -- [...] CONTINUED ON NEXT PAGE DEPARTMENT OF PATHOLOGY, [address] [place] [address] Bacilio Caballero M.D. Director [facility] # [id number] GROSS DESCRIPTION 1. The specimen is received [...] END OF REPORT DEPARTMENT OF PATHOLOGY, [address] [place] [address] Bacilio Caballero M.D. Director [facility] # [id number] 3 [id number] 4 SEE RESULT BELOW Name: MICHELLE VAZQUEZ : [address]: Harvey Colunga MD Acct: [id number] Unit: [id number] AGE: 63 Location: [facility] Re06/14/19 SEX: F Status: DEP REF SPEC: [id number] KRISTAN: 06/14/19-[address] [facility] [address]: Harvey Colunga MD REQ: [id number] RECD: 06/14/19-1310 STATUS: RAMO SARMIENTOHR DR: Salazar Enamorado PAN PULLER _ SOURCE: GAS ANTRUM SPDESC: ORDERED: Clotest COMMENTS: [id number] Procedure Result Reported Site Clotest Final 06/15/19- 0802 ML Clotest Negative * ML - Main Lab . END OF REPORT DEPARTMENT OF PATHOLOGY, [address] [place] [address] Bacilio Caballero M.D. Director [facility] # [id number] 5 Desirable: <150 Borderline High: 150-199 High: 200-499 Very High: >500 6 Desirable: <200 Borderline High: 200-239 High: >239 7 Low: <40 Desirable: 40-60 High: >60 8 Desirable: <100 Near Optimal: 100-129 Borderline High: 130-159 High: 160-189 Very High: >189 9 Because ethnic data is not always readily [...] 15-29 5 Kidney failure <15 (or dialysis) 10 FASTING 10 HOUR Procedures Date Code Description Status 07/14/2019 33077 EKG Tracing & Interpretation Completed 11/15/2018 [id number] Mammogram Completed 05/20/2017 [id number] Mammogram Completed Medical Devices Description No Information Available Encounters Type Date Location Provider Dx Diagnosis Office Visit 06/07/2019 [facility] Internal Salazar Enamorado NP E03.9 [facility]10 Essential (primary) hypertension E78.5 Hyperlipidemia, unspecified G47.00 Insomnia, unspecified Assessments Date Code Description Provider 07/14/2019 Z01.818 Encounter for other preprocedural examination Salazar Fei , PAN PULLER 07/14/2019 M43.16 Spondylolisthesis, lumbar region Salazar Fei, PAN PULLER 07/14/2019 E03.9 Hypothyroidism, unspecified Salazar Fei, PAN PULLER 07/14/2019 I10 Essential (primary) hypertension Salazar Fei, PAN PULLER 07/14/2019 E78.5 Hyperlipidemia, unspecified Salazar Fei, PAN PULLER 06/07/2019 E03.9 Hypothyroidism, unspecified Salazar Fei, PAN PULLER 06/07/2019 I10 Essential (primary) hypertension Salazar Fei, PAN PULLER 06/07/2019 E78.5 Hyperlipidemia, unspecified Salazar Fei, PAN PULLER 06/07/2019 G47.00 Insomnia, unspecified Salazar Fei, PAN PULLER Plan of Treatment Future Appointment(s):12/08/2019 9:40 am - Salazar Enamorado NP at [facility] - Salazar Enamorado NPZ01.818 Encounter for other preprocedural ywpvwynyfqoG50.16 Spondylolisthesis, lumbar uynlnuQ31.9 Hypothyroidism, wmusptrbfvzI22 Essential (primary) hypertensionComments:Your blood pressure is slightly elevated today. Start checking your blood pressure again and report readings that are persistently higher than 140/90.E78.5 Hyperlipidemia, unspecified Functional Status Description No Information Available Mental Status Description No Information Available Referrals Description No Information Available
--- NOTE | 2019-07-27 18:22 | ED ---
Back Pain - HPI Summary HPI Summary: 63 year old female presents with the constipation since Thursday. She states she has L4-L5 disc fusion at [place] on Thursday. States that she was not able to urinate afterwards so they placed a Lamb which she has had since then. She did have some numbness and tingling in her pelvis but now has complete loss of sensation around her anus. She states she is have a bowel movement since Thursday. She states that she is not able to push to have a bowel movement. She feels that she is not able to control her urine. She has used mag citrate and multiple enemas with no relief. She denies any abdominal pain. She has back pain. 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 Pain Intensity: 3 - Allergies/Home Medications Allergies/Adverse Reactions: Allergies Allergy/AdvReac Type Severity Reaction Status Date / Time lansoprazole Allergy Hives Verified 06/14/19 15:22 Home Medications: Home Medications Citalopram Hydrobromide [Citalopram HBr] 20 mg PO DAILY 05/03/18 [History Confirmed 07/27/19] Diltiazem XR EXTEND Releas(NF) [Cartia XR (NF)] 240 mg PO DAILY 05/03/18 [ History Confirmed 07/27/19] Hydrochlorothiazide TAB* [Hydrodiuril TAB*] 25 mg PO DAILY 05/03/18 [History Confirmed 07/27/19] Labetalol HCl 200 mg PO DAILY 05/03/18 [History Confirmed 07/27/19] Levothyroxine TAB* [Synthroid TAB*] 50 mcg PO DAILY 05/03/18 [History Confirmed 07/27/19] Losartan Potassium 100 mg PO DAILY 05/03/18 [History Confirmed 07/27/19] Pravastatin Sodium [Pravachol] 80 mg PO QPM 05/03/18 [History Confirmed 07/27/19 ] Omeprazole 20 mg PO DAILY 06/14/19 [History Confirmed 07/27/19] Lactulose* 15 ml PO DAILY #1 udc 07/28/19 [Rx] Mineral Oil ENEMA* [Fleet Mineral Oil Enema*] 1 bottle [place] DAILY #1 btl 07/28/19 [Rx] Senna TAB 8.6 mg* [Senokot 8.6 mg TAB*] 2 tab PO BEDTIME #14 tab 07/28/19 [Rx] PMH/Surg Hx/FS Hx/Imm Hx Endocrine/Hematology History: Reports: Hx Thyroid Disease Cardiovascular History: Reports: Hx Hypertension GI History: Reports: Other GI Disorders - 2019 HIATAL HERNIA AND DYSPHAGIA - Cancer History Hx Chemotherapy: No Hx Radiation Therapy: No - Surgical History Surgery Procedure, Year, and Place: d&c. T&A. partial thyroidectomy. tubal ligation. meniscus repair. right knee replacement 07/2018 Infectious Disease History: No Infectious Disease History: Denies: Traveled Outside the [place] in Last 30 Days - Family History Known Family History: Positive: Cardiac Disease, Hypertension - Social History Alcohol Use: Occasionally Alcohol Amount: 1-2 Substance Use Type: Reports: None Smoking Status (MU): Never Smoked Tobacco Review of Systems Negative: Fever Negative: Chest Pain Negative: Shortness Of Breath Positive: Other - constipation All Other Systems Reviewed And Are Negative: Yes Physical Exam Triage Information Reviewed: Yes Vital Signs On Initial Exam: Initial Vitals Temp Pulse Resp BP Pulse Ox 97.6 F 78 16 116/72 99 07/27/19 16:36 07/27/19 16:36 07/27/19 16:36 07/27/19 16:36 07/27/19 16:36 Vital Signs Reviewed: Yes Appearance: Positive: Well-Appearing Skin: Positive: Warm, Dry Head/Face: Positive: Normal Head/Face Inspection Eyes: Positive: Normal, Conjunctiva Clear ENT: Positive: Pharynx normal Respiratory/Lung Sounds: Positive: Clear to Auscultation, Breath Sounds Present Cardiovascular: Positive: Normal, RRR Abdomen Description: Positive: Nontender, Soft Bowel Sounds: Positive: Present Musculoskeletal: Positive: Other - incision clean dry and intact Neurological: Positive: Normal Psychiatric: Positive: Normal Procedures - Sedation Patient Received Moderate/Deep Sedation with Procedure: No Diagnostics - Vital Signs Vital Signs Temp Pulse Resp BP Pulse Ox 07/27/19 16:36 97.6 F 78 16 116/72 99 - Laboratory Result Diagrams: 07/27/19 19:22 07/27/19 19:22 Lab Statement: Any lab studies that have been ordered have been reviewed, and results considered in the medical decision making process. - Radiology abd Radiology Interpretation Completed By: ED Physician Summary of Radiographic Findings: stool throughout lumbar Radiology Interpretation Completed By: ED Physician Summary of Radiographic Findings: no fracture, post surgical changes - Additional Comments Diagnostic Additional Comments: MRI lumbar IMPRESSION: Postsurgical changes as described in detail above. Degenerative changes as described in detail above. Soft tissue swelling extending from L1 up to S1. Fluid collection and edema is seen in the laminectomy bed at L3/L4 and L4 /L5. Fluid collection in the laminectomy beds is measuring 5.5 cm in craniocaudal direction. Fluid collection is extending from L5 up to the L2 in the posterior extra-axial space causing anterior displacement of the nerve roots at L2 and L3. Findings are likely postsurgical. Follow-up as clinically indicated. Re-Evaluation - Re-Evaluation First Eval Re-Evaluation Time: 00:07 Comment: back has increased Second Eval Re-Evaluation Time: 01:00 Comment: performed rectal disimpaction Back Pain Course/Dx - Course Course Of Treatment: 63 year old female presents with the constipation since Thursday. She states she has L4-L5 disc fusion at [place] on Thursday. States that she was not able to urinate afterwards so they placed a Lamb which she has had since then. She did have some numbness and tingling in her pelvis but now has complete loss of sensation around her anus. She states she is have a bowel movement since Thursday. She states that she is not able to push to have a bowel movement. She feels that she is not able to control her urine. She has used mag citrate and multiple enemas with no relief. She denies any abdominal pain. She has back pain. On exam has decreased rectal tone. soft stool present. patella and babinski intact. gross sensation intact legs and around anus. xray shows stool throughout. abd xray shows stool throughout. thoracic MRI shows no acute findings. lumbar MRI shows soft tissue swelling and no cauda equina. discussed MRI results with dr nagy. performed manual disimpaction. will place on senna, lactulose and mineral oil enema. told follow up with neurosurgery. patient understand and agrees with plan. - Diagnoses Differential Diagnosis/HQI/PQRI: Positive: Cauda Equina Syndrome, Compressive Cord Syndrome, Epidural Abscess, Other - constipation Provider Diagnoses: Constipation, Soft tissue swelling of back - Critical Care Time Critical Care Statement: Critical care time is provided exclusive of any time spent performing procedures. Discharge ED - Sign-Out/Discharge Documenting (check all that apply): Patient Departure - Discharge Plan Condition: Good Disposition: HOME Prescriptions: Lactulose* 15 ml PO DAILY #1 udc Mineral Oil ENEMA* [Fleet Mineral Oil Enema*] 1 bottle [place] DAILY #1 btl Senna TAB 8.6 mg* [Senokot 8.6 mg TAB*] 2 tab PO BEDTIME #14 tab Patient Education Materials: Constipation (ED) Referrals: Salazar Enamorado NP [Primary Care Provider] - Additional Instructions: follow up with neurosurgeon Take senna two tablets at bedtime while on pain medication use 15ml lactulose daily until normal bowel movement use enema daily until have normal bowel movement Return to ED if develop any new or worsening symptoms - Billing Disposition and Condition Condition: GOOD Disposition: Home
[2019-07-27] MEDS ORDERED: LORazepam INJ* 2 MG/ML 1 ML VIAL IV PUSH ONE (18:45)
[2019-07-27] MEDS ORDERED: Lorazepam PYXIS KEY PRN (18:45)
[2019-07-27 19:32] LABS: ABS Eosinophils 0.2 10^3/ul (0-0.6); ABS Monocytes 0.5 10^3/ul (0-0.8); ABS Neutrophils 5.5 10^3/ul (1.5-7.7); Eosinophil % 2.7 %; Hematocrit 33 % (35-47); Hemoglobin 11.1 g/dL (12.0-16.0); Lymphocyte % 13.8 %; Mean Corpuscular HGB Conc 34 g/dL (31-36); Mean Corpuscular Hemoglobin 32 pg (27-31); Mean Corpuscular Volume 95 fL (80-97); Platelet Count 192 10^3/uL (150-450); Red Blood Count 3.44 10^6 /uL (3.70-4.87); Red Cell Distribution Width 15 % (10-15); White Blood Count 7.3 10^3/uL (3.5-10.8)
[2019-07-27 19:45] LABS: Albumin 3.8 g/dL (3.2-5.2); Albumin/Globulin Ratio 1.5 (1-3); BUN/Creatinine Ratio 20.8 (8-20); C Reactive Protein 15.56 mg/L (<8.01); Calcium 9.1 mg/dL (8.6-10.3); EGFR Non-African American 75.2 (>60); Globulin 2.6 g/dL (2-4); Potassium 3.9 mmol/L (3.5-5.0); Total Bilirubin 0.4 mg/dL (0.2-1.0); Total Protein 6.4 g/dL (6.4-8.9)
[2019-07-28] MEDS ORDERED: Morphine INJ* 2 MG/ML 1 ML SYRINGE (TWO MG - NEW SYRINGE VERSION) IV ONE (00:06)
[2019-07-28] MEDS ORDERED: Senna TAB 8.6 mg* TAB PO ONE (00:57)
[2019-07-28 01:11] VITALS: BP 0/0
== END 2019-07-28 01:10 | disposition home or self-care (01) ==
LOC: ED 16:34
DX: K59.00 Constipation, unspecified (principal); R60.9 Edema, unspecified; E03.9 Hypothyroidism, unspecified; I10 Essential (primary) hypertension; Z79.890 Hormone replacement therapy; Z79.899 Other long term (current) drug therapy; Z96.651 Presence of right artificial knee joint; Z88.8 Allergy status to other drugs, medicaments and biological substances
CPT/HCPCS: 36415; 72100; 72146; 72148; 74019; 80053; 85025; 86140; 99284; A9270-GY; J2060